=== PATIENT | female | born 1985 | race Caucasian/White ===

== ENCOUNTER 2017-07-11 08:02 | Emergency (ER) | payer OTHER ==
[~2017-07-11] VITALS: Ht 165.1 cm; Wt 52.2 kg
[2017-07-11 08:06] VITALS: BP 136/84; PULSE 107; RESP 16; TEMP 98.1; O2SAT 99
--- NOTE | 2017-07-11 08:42 | PD ---
HPI Chief Complaint: Injury Time Seen by Provider: 08:11 Travel History International Travel<30 days: No Contact w/Intl Traveler<30days: No Traveled to known affect area: No History of Present Illness HPI 31-year-old female presents the emergency department with injury to the left distal thumb status post fall last evening. Patient states when she fell she hit her thumb and the tip was apparently dislocated straight up with sudden onset pain. Patient states she pushed it back into place right away. Patient now has increased pain, swelling, and small amount of ecchymosis to the left thumb. She has no other injury. Pain is currently 8 out of 10. There is no open wound or abrasion. She has allergies to codeine and erythromycin. [facility] Past Medical History Medical History: Denies Significant Hx Diminished Hearing: No Influenza Vaccination: No ?: Not LMP: 06/17/17 Past Surgical History Surgical History: No Previous Surgery Social History Alcohol Use: Yes (OCCASIONALLY) Tobacco Use: No Substance Use: No Allergies-Medications (Allergen,Severity, Reaction): Coded Allergies: codeine (Verified Allergy, Severe, 07/11/17) erythromycin base (Verified Allergy, Severe, 07/11/17) Review of Systems Except as stated in HPI: all other systems reviewed are Neg General / Constitutional: No: Fever Eyes: No: Visual changes HENT: No: Headaches Cardiovascular: No: Chest Pain or Discomfort Respiratory: No: Shortness of Breath Gastrointestinal: No: Abdominal Pain Genitourinary: No: Dysuria Musculoskeletal: Positive: Arthralgias, Limited ROM, Pain Skin: No Rash Neurologic: No: Weakness Psychiatric: No: Depression Endocrine: No: Polydipsia Hematologic/Lymphatic: No: Easy Bruising Physical Exam Narrative GENERAL: Patient appears in no obvious distress. SKIN: Warm and dry. Normal color. Normal turgor. No abrasions or wounds. Ecchymosis noted at the DIP joint of the left thumb. HEAD: Atraumatic. Normocephalic. EYES: Pupils equal and round. No scleral icterus. No injection or drainage. ENT: No nasal bleeding or discharge. Mucous membranes pink and moist. Pharynx is clear. Airway is patent NECK: Trachea midline. Supple and nontender CARDIOVASCULAR: Regular rate and rhythm. RESPIRATORY: No accessory muscle use. Clear to auscultation. Breath sounds equal bilaterally. MUSCULOSKELETAL: Extremities without clubbing, cyanosis, or edema. No obvious deformities. Patient is swelling and decreased range of motion to the left thumb. There is a small amount of ecchymosis as noted above. Neurovascular exam is intact distally. Range of motion limited secondary to pain. There is no obvious loss of function. NEUROLOGICAL: Awake and alert. No obvious cranial nerve deficits. Motor grossly within normal limits. Five out of 5 muscle strength in the arms and legs. Normal speech. PSYCHIATRIC: Appropriate mood and affect; insight and judgment normal. Data Data Last Documented VS Vital Signs Date Time Temp Pulse Resp B/P (MAP) Pulse Ox O2 Delivery O2 Flow Rate FiO2 07/11/17 08:16 Room Air 07/11/17 08:06 98.1 107 16 136/84 (101) 99 Orders Orders Finger ([id number]) (07/11/17 08:14) Ice/Cold Pack (07/11/17 08:14) Splinting (07/11/17 ) MDM Medical Decision Making Medical Screen Exam Complete: Yes Emergency Medical Condition: Yes Differential Diagnosis Left thumb contusion. Left thumb dislocation. Left thumb fracture. Narrative Course Ice is applied to the injured area. X-ray of the left thumb was ordered. X-ray shows no obvious signs of fracture or dislocation. Patient is placed in a spica thumb splint for comfort. She is to take ibuprofen 600 mg 3 times daily as she has been. Patient should ice it frequently as needed. Patient to follow with her primary care physician as needed. Diagnosis Primary Impression: Closed dislocation of left thumb Qualified Codes: S63.105A - Unspecified dislocation of left thumb, initial encounter Referrals: Primary Care Physician Patient Instructions: Finger Sprain (ED), General Instructions Additional Instructions: X-ray shows no obvious signs of fracture or dislocation. Patient is placed in a spica thumb splint for comfort. She is to take ibuprofen 600 mg 3 times daily as she has been. Patient should ice it frequently as needed. Patient to follow with her primary care physician as needed. Med/Other Pt SpecificInfo: No Change to Meds Disposition: 01 DISCHARGE HOME Condition: Stable Neto Moore Jul 11, 2017 08:42
--- NOTE | 2017-07-11 09:05 | RADRPT ---
EXAM DATE/TIME: 07/11/2017 08:48 [facility] COMPARISON: No previous studies available for comparison. INDICATIONS : Pain post fall- Patient states that she dislocated thumb. MEDICAL HISTORY : None. SURGICAL HISTORY : None. ENCOUNTER: Initial ACUITY: 2 days PAIN SCORE: 10/10 LOCATION: Left 1st Digit. FINDINGS: Examination of the first digit of the left hand demonstrates no evidence of fracture or dislocation. No radiopaque foreign bodies are seen. The soft tissues are intact. CONCLUSION: No acute fracture. Blayne Costa MD on July 11, 2017 at 8:59 Board Certified Radiologist. This report was verified electronically.
[2017-07-11 09:58] VITALS: BP 128/76
== END 2017-07-11 10:06 | disposition home or self-care (01) ==
LOC: NEPD 08:02
DX: S63.105A Unspecified dislocation of left thumb, initial encounter (principal); Z88.5 Allergy status to narcotic agent; Z88.8 Allergy status to other drugs, medicaments and biological substances; W19.XXXA Unspecified fall, initial encounter
CPT/HCPCS: 73140; 99283; L3808